=== PATIENT | female | born 1945 | race Caucasian/White ===

== ENCOUNTER → 2016-08-17 | Outpatient (CLI) | payer MEDICARE ==
[~2016-08-17] MED LIST: BARIUM SULFATE 60% 355 ML SUSP PO ONE; BARIUM SULFATE 98% 135 ML SUSP PO ONE; SIMETHICONE/SOD BICARB/CITRIC ACID PACKET. PO ONE
--- NOTE | 2016-08-17 08:36 | RAD ---
Esophagram, 08/17/2016: History: Tickle in throat The study was performed utilizing high density barium and thin liquid barium. 4.6 minutes of fluoroscopy time was utilized. 11 static and dynamic fluoroscopic sequences were recorded. There is no obstruction to flow of the barium through the cervical esophagus. Minimal transient laryngeal penetration was noted. The esophageal peristalsis was mildly decreased with moderate stasis of barium in the esophagus in the recumbent position. No obstructing mass is seen. There is a small sliding-type hiatal hernia. A Schatzki's ring is present. It opened up to a maximal diameter of approximately 9 mm during this exam. A Schatzki's ring of this diameter may or may not cause obstructive symptoms, depending on the patient's eating habits. No gastroesophageal reflux was demonstrated. IMPRESSION: 1. Small sliding-type hernia with a Schatzki's ring. 2. Mildly decreased esophageal peristalsis compatible with presbyesophagus.
== END | disposition home or self-care (01) ==
LOC: RAD 07:28
PROVIDERS: ATTEND Physician Assistant
DX: K21.9 Gastro-esophageal reflux disease without esophagitis (principal); K22.2 Esophageal obstruction; K22.8 Other specified diseases of esophagus
CPT/HCPCS: 74220

== ENCOUNTER → 2016-08-26 | Day surgery (SDC) | payer MEDICARE ==
[~2016-08-26] MED LIST changes: -BARIUM SULFATE 60% 355 ML SUSP PO ONE; -BARIUM SULFATE 98% 135 ML SUSP PO ONE; +ESCI10TA PO; +FENTANYL PF 100 MCG/2 ML VIAL. IV PRN; +HYDROMORPHONE 2 MG/ML VIAL. IV PRN; +IV RINGERS,LACTATED 1000ML 1,000 ML IV SCH; +LEVO50TA5 PO; +LIDOCAINE 1% 1 ML SYRINGE. ID PRN; +LIDOCAINE 2% PF Vial for OR 5 ML VIAL. ONE; +LIPITOR80 MG PO; +MORPHINE SULFATE 2 MG/ML DISP.SYRIN. IV PRN; +OMEP20CA9 PO; +PROCHLORPERAZINE 10 MG/2 ML VIAL. IV PRN; +PROPOFOL 20 ML IV ONE; +PROPOFOL 40 ML IV ONE; +ROPI0.5T PO; -SIMETHICONE/SOD BICARB/CITRIC ACID PACKET. PO ONE; +SODIUM PHOSPHATES 19/7GM 133 ML ENEMA. ONE
[2016-08-26 11:04] VITALS: BP 186/94
--- NOTE | 2016-08-27 14:38 | PATHOLOGY ---
PATHOLOGY REPORT * * * * * * * * FINAL DIAGNOSIS: A. Colon biopsies, cecal polyps: - Tubular adenomas. B. Duodenal biopsy, second part duodenum: - No significant pathologic abnormalities. C. 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 D. Gastric biopsy, antrum: - Chronic gastritis, mild. E. Gastric biopsy, fundal polyp: - Fundic gland polyp. F. Esophageal biopsy, distal esophagus: - Segments of hyperplastic squamous esophageal mucosa, esophagogastric mucosa, and gastric mucosa showing chronic inflammation, consistent with reflux esophagitis. G. Esophageal biopsy, middle esophagus: - Segments of hyperplastic squamous esophageal mucosa consistent with reflux esophagitis. COMMENT: Sections of the cecal biopsies reveal multiple tubular adenomas showing no high-grade dysplasia or evidence of malignancy. Sections of the second portion duodenum biopsy reveal segments of small intestine mucosa. The mucosal villi appear normal. There are no sprue-like changes or significant inflammatory changes. Sections of the duodenal bulb biopsy reveal segments of heterotopic gastric mucosa showing mild to moderate chronic inflammation. Sections of the gastric antral biopsy show congestion and mild chronic inflammation. An immunoperoxidase stain for Helicobacter is obtained. No Helicobacter organisms are identified. Sections of the gastric fundic polyp biopsy reveal a polypoid segment of gastric fundic mucosa showing focal cystically dilated fundic glands consistent with fundic gland polyp. There are no adenomatous changes or evidence of malignancy. Sections of the distal esophageal biopsy reveal segments of hyperplastic squamous esophageal mucosa, esophagogastric mucosa, and gastric mucosa showing mild to moderate chronic inflammation. The findings are consistent with reflux. There is no evidence of Escobar's change, dysplasia, or malignancy. Sections of the middle esophageal biopsy reveal segments of tangentially oriented hyperplastic squamous esophageal mucosa consistent with reflux esophagitis. There is no evidence of Escobar's change, dysplasia, or malignancy. (JPM:mgalvaro; d/t: 08/27/16) Special Stain Performed: Immunoperoxidase stain for Helicobacter (D1) REPORT ELECTRONICALLY SIGNED BY: Lizandro Loyd M.D. DATE/TIME: 08/27/2016 14:37 * * * * * * * * GROSS PATHOLOGY: A. Received in formalin labeled "Stark, Elly and cecal polyps," are multiple segments of [place] soft tissue measuring 2.4 x 0.7 x 0.3 cm in aggregate dimensions and ranging from 0.2 to 0.7 cm in maximum dimension. The specimen is submitted entirely in cassette A1. B. Received in formalin labeled "Stark, Elly and second part duodenum," are 2 segments of [place] soft tissue measuring 0.9 x 0.2 x 0.2 cm in aggregate dimensions and measuring 0.4 and 0.5 cm in maximum dimension. The specimen is submitted entirely in cassette B1. C. Received in formalin labeled "Stark, Elly and duodenal bulb," are 3 segments of [place] soft tissue measuring 0.7 x 0.2 x 0.2 cm in aggregate dimensions and ranging from 0.2 to 0.3 cm in maximum dimension. The specimen is submitted entirely in cassette C1. D. Received in formalin labeled "Stark, Elly and gastric antrum," are 2 segments of [place] soft tissue measuring 0.9 x 0.2 x 0.2 cm in aggregate dimensions and measuring 0.3 and 0.6 cm in maximum dimension. The specimen is submitted entirely in cassette D1. E. Received in formalin labeled "Stark, Elly and fundal polyp," is a segment of [place] soft tissue measuring 0.4 cm in maximum dimension. The specimen is submitted entirely in cassette E1. F. Received in formalin labeled "Stark, Elly and distal esophagus," are 2 segments of [place] soft tissue measuring 1.3 x 0.3 x 0.2 cm in aggregate dimensions and measuring 0.6 and 0.7 cm in maximum dimension. The specimen is submitted entirely in cassette F1. G. Received in formalin labeled "Stark, Elly and mid esophagus," is a segment of [place] soft tissue measuring 0.5 cm in maximum dimension. The specimen is submitted entirely in cassette G1. (TTL; 08/26/2016) INITIAL CPT CODE(S): A; 02968 B; 87824 C; 60633 D; 72981, 26030 E; 03356 F; 12196 G; 67090 Professional services performed by [facility] [address] [place] [id number] Technical services performed by [facility] at [address] [place] [address], [address], [place] [address]. SPECIMEN(S) RECEIVED: A.Cecal polyps B.Second part duodenum C.Duodenal bulb D.Gastric antrum E.Fundal polyp F.Distal esophagus G.Mid esophagus CLINICAL HISTORY: EGD, GERD, polyps PATIENT: ELLY STARK /AGE: 208/27/1945 (Age: 70) PATIENT #: [id number] ALT CASE #: SPECIMEN COLLECTION DATE: 08/26/2016 SPECIMEN RECEIVED DATE: 08/26/2016 [facility] - [address] [place] [address] - PHONE: [phone] * * * END OF REPORT * * *
== END | disposition home or self-care (01) ==
LOC: ENDOS 08:14
PROVIDERS: ATTEND Internal Medicine Gastroenterology
DX: Z12.11 Encounter for screening for malignant neoplasm of colon (principal); K64.0 First degree hemorrhoids; D12.0 Benign neoplasm of cecum; K57.30 Diverticulosis of large intestine without perforation or abscess without bleeding; Z86.010 Personal history of colon polyps; K22.2 Esophageal obstruction; K31.7 Polyp of stomach and duodenum; K21.9 Gastro-esophageal reflux disease without esophagitis; F32.9 Major depressive disorder, single episode, unspecified; E03.9 Hypothyroidism, unspecified; Z72.89 Other problems related to lifestyle
CPT/HCPCS: 43239; 43450; 45380; 88305; 88342; J2704; G0641

== ENCOUNTER → 2019-02-20 | Outpatient (CLI) | payer MEDICARE, OTHER ==
[2016-08-26 11:04] VITALS: BP 186/94
[~2019-02-20] MED LIST changes: -ESCI10TA PO; +ESCITALOPRAM OX10 MG PO; -FENTANYL PF 100 MCG/2 ML VIAL. IV PRN; -HYDROMORPHONE 2 MG/ML VIAL. IV PRN; -IV RINGERS,LACTATED 1000ML 1,000 ML IV SCH; -LIDOCAINE 1% 1 ML SYRINGE. ID PRN; -LIDOCAINE 2% PF Vial for OR 5 ML VIAL. ONE; -MORPHINE SULFATE 2 MG/ML DISP.SYRIN. IV PRN; +OMEP20CA10 PO; -OMEP20CA9 PO; -PROCHLORPERAZINE 10 MG/2 ML VIAL. IV PRN; -PROPOFOL 20 ML IV ONE; -PROPOFOL 40 ML IV ONE; -SODIUM PHOSPHATES 19/7GM 133 ML ENEMA. ONE
--- NOTE | 2019-02-20 10:26 | CARD ---
MR#: [id number] Date of Study: 02/20/2019 Ordering Physician: CARLITO PICHARDO, Referring Physician: CARLITO PICHARDO, Tech: Hui Augustine HERON APPROVED REPORT EXAM: Two-dimensional and M-mode echocardiogram with Doppler and color Doppler. Other Information Quality : Good INDICATION Murmur 2D DIMENSIONS RVDd2.7 (2.9-3.5cm)Left Atrium(2D)3.6 (1.6-4.0cm) IVSd1.0 (0.7-1.1cm)Aortic Root(2D)2.7 (2.0-3.7cm) LVDd4.3 (3.9-5.9cm)LVOT Diameter2.0 (1.8-2.4cm) PWd1.0 (0.7-1.1cm)LVDs2.9 (2.5-4.0cm) FS (%) 31.2 %SV48.1 ml LVEF(%)59.3 (>50%) Aortic Valve AoV Peak Ed.125.0cm/sAoV VTI22.0cm AO Peak GR.6.2mmHgLVOT Peak Ed.132.7cm/s AO Mean GR.3mmHgAVA (VMAX)3.37cm2 BENJA (VTI)3.60cm2 Mitral Valve MV E Qsbmdrbc449.4cm/sMV DECEL WARZ300ej MV A Tpmbnsxd90.3cm/sE/A Ratio1.4 Tricuspid Valve TR P. Iklmpcks919lp/sRAP CFQTYKRP3fmCu TR Peak Gr.21dvDoFYLQ70czGg Pulmonary Vein S1 Zuxtqwas56.3cm/sD2 Xuhbeqxb50.6cm/s LEFT VENTRICLE The left ventricle is normal size. There is normal left ventricular wall thickness. The left ventricu lar systolic function is normal and the ejection fraction is within normal range. The Ejection Fracti on is 55-60%. There is normal LV segmental wall motion. Transmitral Doppler flow pattern is Grade II- pseudonormal filling dynamics. RIGHT VENTRICLE The right ventricle is normal size. The right ventricular systolic function is normal. ATRIA The left atrium size is normal. The right atrium size is normal. The interatrial septum is intact wit h no evidence for an atrial septal defect or patent foramen ovale as noted on 2-D or Doppler imaging. There is hypertrophy of the IAS. AORTIC VALVE The aortic valve is calcified but opens well. Doppler and Color Flow revealed no significant aortic r egurgitation. There is no significant aortic valvular stenosis. MITRAL VALVE The mitral valve is calcified but opens well. There is no evidence of mitral valve prolapse. There is no mitral valve stenosis. Doppler and Color Flow revealed no mitral valve regurgitation noted. TRICUSPID VALVE The tricuspid valve is normal in structure and function. Doppler and Color Flow revealed no tricuspid valve regurgitation noted. There is no tricuspid valve stenosis. PULMONIC VALVE The pulmonic valve is not well visualized. Doppler and Color Flow revealed no pulmonic valvular regur gitation. There is no pulmonic valvular stenosis. GREAT VESSELS The aortic root is normal in size. The ascending aorta is normal in size. The IVC is normal in size a nd collapses >50% with inspiration. PERICARDIAL EFFUSION There is no evidence of significant pericardial effusion. Critical Notification Critical Value: No <Conclusion> The left ventricular systolic function is normal and the ejection fraction is within normal range. Th e Ejection Fraction is 55-60%. There is normal LV segmental wall motion. The interatrial septum is intact with no evidence for an atrial septal defect or patent foramen ovale as noted on 2-D or Doppler imaging. There is hypertrophy of the IAS. Signed by : Ramiro Patterson, Electronically Approved : 02/20/2019 10:26:01
== END | disposition home or self-care (01) ==
LOC: ECHO 08:12
PROVIDERS: ATTEND Internal Medicine Cardiovascular Disease
DX: I08.0 Rheumatic disorders of both mitral and aortic valves (principal)
CPT/HCPCS: 93306

== ENCOUNTER → 2021-05-11 | Outpatient (CLI) | payer MEDICARE ==
[2016-08-26 11:04] VITALS: BP 186/94
[~2021-05-11] MED LIST changes: -OMEP20CA10 PO; +OMEP20CA16 PO
--- NOTE | 2021-05-11 12:44 | KCIC ---
EXAM: Head CT without contrast. HISTORY: Headache. TECHNIQUE: Computed tomographic images of the head were obtained without contrast. *One or more of the following individualized dose reduction techniques were utilized for this examina tion: 1. Automated exposure control. 2. Adjustment of the mA and/or kV according to patient size. 3. Use of iterative reconstruction technique. COMPARISON: None. FINDINGS: There is no acute or subacute extra-axial or intraparenchymal hemorrhage. There is no mass effect or midline shift. There is no hydrocephalus. There are areas of decreased attenuation within the cerebral white matter, nonspecific and likely rel ated to chronic small vessel disease. There is a small mucous retention cyst within the left aspect of the sphenoid sinus and posterior lef t ethmoid sinus. There is posterior left ethmoid sinus mucosal thickening. The mastoid air cells are clear. There is no suspicious calvarial lesion. IMPRESSION: 1. No acute intracranial finding. 2. Bilateral cerebral white matter changes, likely due to chronic small vessel disease in a patient o f this age. Electronically signed by: Fifi Moran MD (05/11/2021 12:42 PM) [id number]
== END ==
LOC: KCIC CT 12:23
PROVIDERS: ATTEND Nurse Practitioner
DX: R51.9 Headache, unspecified (principal)
CPT/HCPCS: 70450